=== PATIENT | female | born 1980 | race Caucasian/White ===

== ENCOUNTER 2016-12-15 19:33 | Emergency (ER) | payer OTHER ==
--- NOTE | 2016-12-15 21:17 | ED Physician Documentation ---
PD HPI WOUND RECHECK - Stated complaint Stated Complaint: OPEN WOUND - Chief complaint Chief Complaint: Laceration - Histroy obtained from History obtained from: Patient - History of Present Illness Location: Abdomen (right lower) Timing - onset: Yesterday (has had redness mild at wound edge and then got worse yesterday and slight drainage.) Associated symptoms: Redness, Drainage. No: Fever Similar symptoms before: Has not had sx before Recently seen: Surgery (recently in [place] for teratoma (?) and had mild redness at follow up with surgeon. Here on vacation trip. Has increased redness and some drainage.) Review of Systems Constitutional: denies: Fever, Chills GI: denies: Nausea, Vomiting, Diarrhea : denies: Dysuria, Frequency PD PAST MEDICAL HISTORY - Past Medical History Past Medical History: No Respiratory: None Endocrine/Autoimmune: None - Past Surgical History Past Surgical History: No - Present Medications Home Medications: Ambulatory Orders Medication Instructions Recorded Confirmed Doxycycline Hyclate 100 mg PO BID #14 tablet 12/15/16 Mupirocin 1 applic TP TID #15 oint...g. 12/15/16 - Allergies Allergies/Adverse Reactions: Allergies Allergy/AdvReac Type Severity Reaction Status Date / Time Sulfa (Sulfonamide Allergy Hives Verified 12/15/16 20:14 Antibiotics) - Social History Does the pt smoke?: No Smoking Status: Never smoker Does the pt drink ETOH?: No Does the pt have substance abuse?: No - Immunizations Immunizations are current?: Yes - POLST Patient has POLST: No PD ED PE NORMAL - Vitals Vital signs reviewed: Yes - General General: Alert and oriented X 3, No acute distress, Well developed/nourished - Cardiac Cardiac: RRR, No murmur - Respiratory Respiratory: Clear bilaterally - Abdomen Abdomen: Normal bowel sounds, Soft, Non distended, No organomegaly, Other ( local tenderness at RLQ surgical wound. Mild dehiscence to fatty tissue at medial end of it (wound is about 3 cm long), with slight clear to cloudy drainage. Bedside U/S showed at most a 3 mm sized fluid just under the skin. No I&D needed. ) PD MEDICAL DECISION MAKING - ED course Complexity details: considered differential (mild dehiscence and scant discharge. Culture obtained. ), d/w patient Departure - Departure Disposition: 01 Home, Self Care Clinical Impression: Postoperative wound infection Qualifiers: Encounter type: initial encounter Qualified Code(s): T81.4XXA - Infection following a procedure, initial encounter Condition: Stable Record reviewed to determine appropriate education?: Yes Prescriptions: Doxycycline Hyclate 100 mg PO BID #14 tablet Mupirocin 1 applic TP TID #15 oint...g. Comments: Cleansed the wound with soap and water or diluted peroxide 2-3 times a day and apply mupirocin ointment. Bandaged it to protect it when wearing closed and up and around but it can be open to the air at times. Doxycycline antibiotic twice daily for a week. Recheck if not improving over the next few days. Follow-up with your primary care back home upon return. Tylenol or ibuprofen if needed for pain. Discharge Date/Time: 12/15/16 22:14
[2016-12-15] MEDS ORDERED: ACETAMINOPHEN 325 MG TABLET PO STA (21:47)
[2016-12-15] MEDS ORDERED: MUPIROCIN 2% OINT 1 GM TOP STA (21:47)
[2016-12-15] MEDS ORDERED: DOXYCYCLINE 100 MG TABLET PO STA (21:47)
[2016-12-15] MEDS ORDERED: DOXYCYCLINE 100 MG TABLET PO ONE (21:59)
[2016-12-15] MEDS ORDERED: ACETAMINOPHEN 325 MG TABLET PO ONE (21:59)
[2016-12-15] MEDS ORDERED: MUPIROCIN 2% OINT 1 GM ONE (21:59)
[2016-12-15 22:18] VITALS: BP 140/95
== END 2016-12-15 22:14 | disposition home or self-care (01) ==
LOC: ED 19:33
DX: T81.4XXA Infection following a procedure, initial encounter (principal); T81.31XA Disruption of external operation (surgical) wound, not elsewhere classified, initial encounter; Y83.8 Other surgical procedures as the cause of abnormal reaction of the patient, or of later complication, without mention of misadventure at the time of the procedure; Y92.89 Other specified places as the place of occurrence of the external cause
CPT/HCPCS: 99282; 99283; A9270